=== PATIENT | male | born 1985 | race African-American/Black ===

== ENCOUNTER 2020-08-01 10:45 | Emergency (ER) | payer MEDICAID ==
[~2020-08-01] VITALS: Ht 177.8 cm; Wt 74.8 kg
[~2020-08-01 10:45] MED LIST: ALBUTEROL SULF8.5 GM INH; ATRIPLA TABLET1 EAC1 ORAL; MECLIZINE HCL25 MG ORAL; MUCINEX1200 MG PO; PROMETHAZINE-D118 ML ORAL; ZYPREXA2.5 MG ORAL
--- NOTE | 2020-08-01 11:50 | NUR ---
ED Nurse Note: Pt cleared by health care Provider for discharge. DC instructions was given and explained to pt and verbalized understanding of teachings. All medical deviecs such as ID band removed. Pt is AAO x4, ambulatory and left with all personal belongings.
--- NOTE | 2020-08-01 11:59 | Emergency Room Report ---
History of Present Illness General Chief Complaint: General Complaint Source: Patient Present Illness HPI Patient is a 34-year-old male states that he is depressed and wants to make his way to [facility]. He is asking for social service technician to help him obtain $278 to get from [place] to [facility]. Patient denies any suicidal or homicidal ideation. He denies any trauma. He denies any fever or chills. Allergies: Coded Allergies: NO KNOWN DRUG ALLERGIES (Verified Allergy, Unknown, 11/01/15) COVID-19 Screening Contact w/high risk pt: No Experienced COVID-19 symptoms?: No COVID-19 Testing performed PATCH SANDER: Yes COVID-19 Screening: Negative COVID-19 COVID-19 Testing Source: nasal Patient History Reviewed Nursing Documentation: PMH: Agreed; PSxH: Agreed Nursing Documentation-PMH Past Medical History: No History, Except For Hx Hypertension: Yes Hx Pacemaker: No Hx Asthma: No Hx COPD: No Review of Systems All Other Systems: negative except mentioned in HPI Physical Exam Vital Signs Date Time Temp Pulse Resp B/P (MAP) Pulse Ox O2 Delivery O2 Flow Rate FiO2 08/01/20 11:36 97.5 85 16 151/93 (112) 99 Room Air Sp02 EP Interpretation: reviewed, normal General Appearance: no apparent distress, alert, GCS 15, non-toxic, other - Disheveled Head: normocephalic, atraumatic Eyes: bilateral eye normal inspection, bilateral eye PERRL ENT: hearing grossly normal, normal pharynx, no angioedema, normal voice Neck: full range of motion, supple/symm/no masses Respiratory: chest non-tender, lungs clear, normal breath sounds, speaking full sentences Cardiovascular #1: regular rate, rhythm, no edema Gastrointestinal: normal bowel sounds, non tender, soft, non-distended, no guarding, no rebound Rectal: deferred Musculoskeletal: normal range of motion Neurologic: chief of pediatric urology III-XII nml as tested Psychiatric: no suicidal/homicidal ideation, depressed affect Skin: no rash Lymphatic: no adenopathy Medical Decision Making Diagnostic Impression: Primary Impression: Depression ER Course Unfortunately we do not have a social service technician at this time. I have given the patient out-patient resources. After discussing risks and benefits of further diagnostics, treatment plans, as well as indications for and risks of admission, the patient is agreeable to being discharged home. I have explained that their evaluation and treatment in the emergency department today is an important step towards them achieving better health but that their evaluation today is not intended to replace further evaluation and treatment by a physician in their local clinic. I have explained that while the current findings suggest no immediate life threatening emergency they will require further evaluation and treatment by a physician of their choice in their area. They understand that it will be necessary for them to review the final reports of their ED visit with their clinic physician. We have reviewed indications for return to the Emergency Department. I have explained that additional time may need to pass and/or additional testing as an outpatient may be necessary before a definitive diagnosis can be made. They tell me they are willing to follow up as instructed within the timeframe I recommend. They appear to understand what we discussed. Additionally they understand that if they are unable to be seen by an outpatient physician they are welcome, and in fact should, return to the Emergency Department for a repeat evaluation. The patient is stable at time of discharge. Last Vital Signs Date Time Temp Pulse Resp B/P (MAP) Pulse Ox O2 Delivery O2 Flow Rate FiO2 08/01/20 11:36 97.5 85 16 151/93 (112 99 Room Air Disposition: HOME, SELF-CARE Condition: Stable Referrals: [facility] Psych ER - Peds ER - [facility] Intake Hotline - Patient Instructions: Depression, Adult, Cgso-of-Dobn Additional Instructions: You are asking for social service technician to help you obtain a ticket that cost $278 to get you from [place] to [facility]. Unfortunately we do not have social service technician available at this hospital at this time. Bobbi Urban M.D. Aug 01, 2020 11:59
[2020-08-01 15:02] VITALS: BP 151/93
== END 2020-08-01 11:50 | disposition home or self-care (01) ==
LOC: EMR 11:18
DX: F32.9 Major depressive disorder, single episode, unspecified (principal); I10 Essential (primary) hypertension
CPT/HCPCS: 99282

== ENCOUNTER 2020-08-02 11:28 | Emergency (ER) | payer MEDICAID ==
[~2020-08-02] VITALS: Ht 177.8 cm; Wt 74.8 kg
--- NOTE | 2020-08-02 11:49 | NUR ---
ED Nurse Note: pt presents to ED for multiple complaints, first he needs a refill on Effexor and also is seeking a Dr note stating why he needs medical attention, states that a buddhist in [place] is arranging him transportation to [facility] for HIV treatment. RAY at pt bedside
[2020-08-02 11:52] VITALS: BP 146/91
[2020-08-02 12:10] VITALS: BP 146/91
--- NOTE | 2020-08-02 12:10 | NUR ---
ER DISCHARGE NOTE: Patient is cleared to be discharged per ERMD, pt is aox4, on room air, with stable vital signs. pt was given dc and prescription instructions, pt was able to verbalize understanding, pt id band removed without complications. pt is able to ambulate with steady gait. pt took all belongings. pt was provided with resources as request
--- NOTE | 2020-08-03 16:47 | Emergency Room Report ---
History of Present Illness General Chief Complaint: Behavioral Complaint Source: Patient Present Illness HPI 34-year-old male presents for evaluation. History of psych. History of HIV. States he needs transport to [facility]. States he was seen here yesterday for this. States that his mind feels "foggy". Denies SI or HI. Denies hearing voices. States he has been compliant with his meds. Denies alcohol or drug use. No other aggravating relieving factors. 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 weeks ago COVID-19 Screening: Negative COVID-19 COVID-19 Testing Source: clinic Patient History Past Medical History: HTN Past Surgical History: none Pertinent Family History: none Social History: Denies: smoking, alcohol use, drug use Immunizations: UTD Reviewed Nursing Documentation: PMH: Agreed; PSxH: Agreed Nursing Documentation-PMH Hx Hypertension: Yes Hx Pacemaker: No Hx Asthma: No Hx COPD: No Review of Systems All Other Systems: negative except mentioned in HPI Physical Exam Vital Signs Date Time Temp Pulse Resp B/P (MAP) Pulse Ox O2 Delivery O2 Flow Rate FiO2 08/02/20 11:34 98.8 96 19 146/91 (109) 98 Room Air Sp02 EP Interpretation: reviewed, normal General Appearance: no apparent distress, alert, GCS 15, non-toxic Head: normocephalic, atraumatic Eyes: bilateral eye normal inspection, bilateral eye PERRL ENT: hearing grossly normal, normal pharynx, no angioedema, normal voice Neck: full range of motion, supple/symm/no masses Respiratory: chest non-tender, lungs clear, normal breath sounds, speaking full sentences Cardiovascular #1: regular rate, rhythm, no edema Cardiovascular #2: 2+ carotid (R), 2+ carotid (L), 2+ radial (R), 2+ radial (L), 2+ dorsalis pedis (R), 2+ dorsalis pedis (L) Gastrointestinal: normal bowel sounds, non tender, soft, non-distended, no guarding, no rebound Rectal: deferred Genitourinary: normal inspection, no CVA tenderness Musculoskeletal: back normal, normal range of motion, gait/station normal, non- tender Neurologic: alert, motor strength/tone normal, oriented x3, sensory intact, responsive, speech normal Psychiatric: judgement/insight normal, memory normal, mood/affect normal, no suicidal/homicidal ideation, anxious Reflexes: 3+ bicep (R), 3+ bicep (L), 3+ tricep (R), 3+ tricep (L), 3+ knee (R), 3+ knee (L) Lymphatic: no adenopathy Medical Decision Making Homeless Attestation I, The treating physician Dr. Wen, have assessed and agrees that patient is medically stable for discharge to an outpatient disposition. Diagnostic Impression: Primary Impression: Schizophrenia Qualified Codes: F20.9 - Schizophrenia, unspecified ER Course Hospital Course 34-year-old male presents for feeling anxious. Requesting transport to [facility]. Differential diagnoses include: withdrawal symtpoms, overdose of psychiatric medications, drug ingestion, sepsis Clinical course Patient placed in chair. After initial history physical exam reveals male in no acute distress. Somewhat anxious. Continue good eye contact. Answering questions appropriately States he feels confused. Patient is alert oriented x3. Answering questions appropriately. I see no reason for further emergent intervention. Patient needs administrator social welfare. States he will go to a denominational that he has been in contact with to assist him with getting transportation and financial support. I will provide referrals and homeless checklist completed i. I feel this is a highly complex case requiring extensive working including EKG/Rhythm strip, Xray/CT/US, Blood/urine lab work, repeat exams while in ED, and administration of strong opiates/narcotics for pain control, admission to hospital or close patient follow up. Diagnosis - schizophrenia Stable and discharged. Followup with PMD/psychiatrist. Return to ED if symptoms recur or worsen Last Vital Signs Date Time Temp Pulse Resp B/P (MAP) Pulse Ox O2 Delivery O2 Flow Rate FiO2 08/02/20 12:10 98.8 19 146/91 98 Room Air 08/02/20 11:52 96 Status: improved Disposition: OTH-HOMELESS Condition: Stable Referrals: [facility] Patient Instructions: Self-Destructive Behavior Additional Instructions: patient needs bedrest after taking his medications. please provide him with a bed to allow for this. Arcadio Wen MD 12, 2021 16:47
== END 2020-08-02 12:20 | disposition other institution (70) ==
LOC: EMR 12:00
DX: F20.9 Schizophrenia, unspecified (principal); I10 Essential (primary) hypertension
CPT/HCPCS: 99281

== ENCOUNTER 2020-09-03 10:50 | Emergency (ER) | payer MEDICAID ==
[~2020-09-03] VITALS: Ht 177.8 cm; Wt 61.2 kg
--- NOTE | 2020-09-03 11:04 | NUR ---
ED Nurse Note:pt is here to get a letter typed up, pt is being giving info to go to [facility] facility to get assistance from them
--- NOTE | 2020-09-03 11:06 | NUR ---
ER DISCHARGE NOTE: Patient is cleared to be discharged per ERMD, pt is aox4, on room air, with stable vital signs. pt was given dc instructions, pt was able to verbalize understanding. pt is able to ambulate with steady gait. pt took all belongings. Addendum: 09/03/20 at 1114 by JIMMIE pt was given sandwich and water, directions to [facility]
[2020-09-03 11:07] VITALS: BP 140/81
--- NOTE | 2020-09-03 11:08 | Emergency Room Report ---
History of Present Illness General Chief Complaint: Behavioral Complaint Source: Patient Present Illness HPI Patient is a 34-year-old male past medical history of psychiatric disorder who presents to the ER stating that he has not been able to sleep for 3 days. He denies any suicidal or homicidal ideation. He denies any headache. He is requesting food and we are giving him some sandwiches and juice. He is also requesting that we type up a letter for him that is handwritten. Explained to him that we do not perform these duties in the emergency department. Unclear if patient has been on his psychiatric medications. I have offered him outpatient resources which he has graciously excepted. Allergies: Coded Allergies: NO KNOWN DRUG ALLERGIES (Verified Allergy, Unknown, 11/01/15) COVID-19 Screening Contact w/high risk pt: No Experienced COVID-19 symptoms?: No COVID-19 Testing performed INSTRUMENTATION MANAGER: No Patient History Reviewed Nursing Documentation: PMH: Agreed; PSxH: Agreed Nursing Documentation-PMH Hx Hypertension: Yes Hx Pacemaker: No Hx Asthma: No Hx COPD: No History Of Psychiatric Problem: Yes - shzidsophrenia Review of Systems All Other Systems: negative except mentioned in HPI Physical Exam Vital Signs Date Time Temp Pulse Resp B/P (MAP) Pulse Ox O2 Delivery O2 Flow Rate FiO2 09/03/20 10:51 98.1 93 17 140/81 (100) 99 Room Air Sp02 EP Interpretation: reviewed, normal General Appearance: no apparent distress, GCS 15, other - Disheveled Head: normocephalic, atraumatic Eyes: bilateral eye normal inspection, bilateral eye PERRL ENT: hearing grossly normal, normal pharynx, no angioedema, normal voice Neck: full range of motion Respiratory: normal breath sounds, no respiratory distress, no accessory muscle use Cardiovascular #1: regular rate, rhythm Gastrointestinal: non tender, soft Rectal: deferred Musculoskeletal: normal range of motion Neurologic: vice president of instruction III-XII nml as tested Psychiatric: no suicidal/homicidal ideation, other - Odd affect Skin: no rash Lymphatic: no adenopathy Medical Decision Making Diagnostic Impression: Primary Impression: Behavioral disorder ER Course Patient given outpatient psychiatric resources. Patient also offered food. After discussing risks and benefits of further diagnostics, treatment plans, as well as indications for and risks of admission, the patient is agreeable to being discharged home. I have explained that their evaluation and treatment in the emergency department today is an important step towards them achieving better health but that their evaluation today is not intended to replace further evaluation and treatment by a physician in their local clinic. I have explained that while the current findings suggest no immediate life threatening emergency they will require further evaluation and treatment by a physician of their choice in their area. They understand that it will be necessary for them to review the final reports of their ED visit with their clinic physician. We have reviewed indications for return to the Emergency Department. I have explained that additional time may need to pass and/or additional testing as an outpatient may be necessary before a definitive diagnosis can be made. They tell me they are willing to follow up as instructed within the timeframe I recommend. They appear to understand what we discussed. Additionally they understand that if they are unable to be seen by an outpatient physician they are welcome, and in fact should, return to the Emergency Department for a repeat evaluation. The patient is stable at time of discharge. Last Vital Signs Date Time Temp Pulse Resp B/P (MAP) Pulse Ox O2 Delivery O2 Flow Rate FiO2 09/03/20 10:51 98.1 93 17 140/81 (100) 99 Room Air Disposition: HOME, SELF-CARE Condition: Stable Referrals: [facility] Patient Instructions: Insomnia Additional Instructions: The patient was provided with discharge instructions, notified to follow-up with a primary care doctor and or specialist in the next 24-48 hours, and to return to the ED if they have worsening of their symptoms. Please note that this report is being documented using [employer] technology. This can lead to erroneous entry secondary to incorrect interpretation by the dictating instrument. Bobbi Urban M.D. Sep 03, 2020 11:08
== END 2020-09-03 11:15 | disposition home or self-care (01) ==
LOC: EMR 11:05
DX: F91.9 Conduct disorder, unspecified (principal); I10 Essential (primary) hypertension; F20.9 Schizophrenia, unspecified
CPT/HCPCS: 99281